=== PATIENT | female | born 1985 ===

== ENCOUNTER 2024-01-21 09:01 | Outpatient (CLI) | payer OTHER, SELFPAY ==
[2024-01-27 17:54] VITALS: BMI 39.1
--- NOTE | 2024-01-27 17:54 | WPDHOMESLEEP ---
Sleep Study - Home Unattended Date of Study: 01/21/24 Ordering Provider: Flip Qiu, Interpreting Provider: Ananya Naranjo, DO Home Sleep Study Type: Watch PAT Height: 1.55 m Weight: 93.894 kg Body Mass Index: 39.1 Neck Circumference (inches): 18.5 [place]: 15 Reason for Sleep Study Unrefreshing sleep Sleep History The patient is a 38-year-old female with hypertension, diabetes, hypothyroidism, allergic rhinitis, PCOS, GERD, irritable bowel syndrome and anxiety that had a sleep study ordered by her lining cleaner for evaluation of sleep apnea. The patient occasionally awakens from sleep short of breath. She frequently awakens at night with heartburn, belching or cough. She constantly snores loudly enough that others complain. She constantly has trouble sleeping when she has a cold. She occasionally wakes up gasping for air throughout the night. She constantly has breathing problems at night observed by herself or others. She constantly sweats excessively at night. She occasionally has heart palpitations or irregular heartbeats during the night. She constantly falls asleep during the day but never while driving. She denies sleep paralysis and cataplexy. She occasionally has trouble at school or work due to sleepiness. She occasionally experiences vivid dreamlike scenes upon awakening or falling asleep. She denies feeling afraid of going to sleep. She occasionally has nightmares. She constantly remembers her dreams. She occasionally has thoughts racing through her mind. She occasionally feels sad or depressed. She frequently has anxiety. She constantly has muscular tension. She frequently notices parts of her body jerk. She occasionally kicks during the night. She denies having crawling and aching feelings in her legs but occasionally has leg pain during the night. She occasionally grinds her teeth during sleep but rarely awakens with morning jaw pain. She is frequently bothered by pain during the day and occasionally awakened by pain during the night. She constantly wakes up feeling stiff in the morning. She constantly wakes up with sore or achy muscles. She constantly wakes up with pain in the neck, spine and other joints. She goes to bed at 11:00 p.m. on both weekdays and weekends. It takes her less than 30 minutes to fall asleep. She wakes up twice throughout the night to urinate and is able to fall asleep relatively quickly. She wakes up at 6:30 a.m. on weekdays and at 9:00 a.m. on the weekends. She typically gets 7 hours of sleep per night. She will stay in bed for 1 hour after waking up in the morning. She currently lives with her and 6-year-old. She denies consuming any caffeinated beverages within 2 hours of bedtime. She denies engaging in physical exercise before bedtime. He will watch television before falling asleep. She will take naps in the afternoon or the evening but they are not refreshing. She consumes 2 caffeinated beverages per day. She denies tobacco, alcohol and recreational drug use. [facility] Past Medical History Medical History Anxiety Diabetes mellitus Hypertension Hypothyroidism (acquired) Sleep Procedure The sleep study was completed using CloverT a technically adequate device with seven channels: peripheral arterial tone, actigraphy, body position, snore, respiratory movement, pulse oximetry, sleep staging, and heart rate. Prior to using the device, the patient received verbal and written instructions for its application and was provided with the help desk phone number for additional telephonic instruction with 24-hour availability of qualified personnel to answer questions.? The study was scored using CMS guidelines. Sleep Architecture The total recording time is 8 hrs, 9 min. The total sleep time is 7 hrs, 23 min. Sleep latency is 19 minutes. REM latency is 113 minutes. The patient had 9 episodes of wak
== END 2024-01-22 07:30 | disposition home or self-care (01) ==
PROVIDERS: Visit Provider Internal Medicine Pulmonary Disease
DX: G47.33 Obstructive sleep apnea (adult) (pediatric) (principal)
CPT/HCPCS: 95800

== ENCOUNTER 2024-02-18 08:44 | Outpatient (CLI) | payer OTHER, SELFPAY ==
--- NOTE | 2024-02-23 14:37 | WPDSLEEPSTUD ---
Sleep Study Date of Study: 02/18/24 Ordering Provider: Flip Qiu, Interpreting Physician: Ananya Naranjo, DO Sleep Study Type: CPAP Titration Height: 1.55 m Weight: 94.347 kg Body Mass Index: 39.2 Neck Circumference (inches): 18.5 [place]: 15 Reason for Sleep Study The patient had a WatchPAT home sleep test on 01/21/2024 that showed an overall AHI of 33.4 with desaturation down to 86%. Sleep History The patient is a 38-year-old female with hypertension, diabetes, hypothyroidism, allergic rhinitis, PCOS, GERD, irritable bowel syndrome and anxiety that had a sleep study ordered by her deli bakery clerk for evaluation of sleep apnea. The patient occasionally awakens from sleep short of breath. She frequently awakens at night with heartburn, belching or cough. She constantly snores loudly enough that others complain. She constantly has trouble sleeping when she has a cold. She occasionally wakes up gasping for air throughout the night. She constantly has breathing problems at night observed by herself or others. She constantly sweats excessively at night. She occasionally has heart palpitations or irregular heartbeats during the night. She constantly falls asleep during the day but never while driving. She denies sleep paralysis and cataplexy. She occasionally has trouble at school or work due to sleepiness. She occasionally experiences vivid dreamlike scenes upon awakening or falling asleep. She denies feeling afraid of going to sleep. She occasionally has nightmares. She constantly remembers her dreams. She occasionally has thoughts racing through her mind. She occasionally feels sad or depressed. She frequently has anxiety. She constantly has muscular tension. She frequently notices parts of her body jerk. She occasionally kicks during the night. She denies having crawling and aching feelings in her legs but occasionally has leg pain during the night. She occasionally grinds her teeth during sleep but rarely awakens with morning jaw pain. She is frequently bothered by pain during the day and occasionally awakened by pain during the night. She constantly wakes up feeling stiff in the morning. She constantly wakes up with sore or achy muscles. She constantly wakes up with pain in the neck, spine and other joints. She goes to bed at 11:00 p.m. on both weekdays and weekends. It takes her less than 30 minutes to fall asleep. She wakes up twice throughout the night to urinate and is able to fall asleep relatively quickly. She wakes up at 6:30 a.m. on weekdays and at 9:00 a.m. on the weekends. She typically gets 7 hours of sleep per night. She will stay in bed for 1 hour after waking up in the morning. She currently lives with her and 6-year-old. She denies consuming any caffeinated beverages within 2 hours of bedtime. She denies engaging in physical exercise before bedtime. He will watch television before falling asleep. She will take naps in the afternoon or the evening but they are not refreshing. She consumes 2 caffeinated beverages per day. She denies tobacco, alcohol and recreational drug use. [facility] Past Medical History Medical History Anxiety Diabetes mellitus Hypertension Hypothyroidism (acquired) Sleep Procedure A full night polysomnogram using the ChoiceMap multi-channel system recorded the standard physiologic parameters including EEG, EOG, submentalis EMG, anterior tibialis EMG, EKG, body position, nasal and oral airflow using PAP device flow signal.? Respiratory parameters of chest and abdominal movements were recorded with Respiratory Inductance Plethysmography belts. Oxygen saturation was recorded by pulse oximetry. Video monitoring was also performed. Sleep stages, periodic limb movements, and EEG arousals were scored in 30 second epochs according to the criteria of the AASM Scoring Manual. The Apnea-Hypopnea Index was c
[2024-02-23 14:38] VITALS: BMI 39.2
== END 2024-02-19 07:01 | disposition home or self-care (01) ==
LOC: ANHCSM 08:45
PROVIDERS: Visit Provider Internal Medicine Pulmonary Disease
DX: G47.33 Obstructive sleep apnea (adult) (pediatric) (principal)
CPT/HCPCS: 95811